=== PATIENT | female | born 1950 | race Caucasian/White ===

== ENCOUNTER 2017-05-09 21:58 | Emergency (ER) | payer MEDICARE, OTHER ==
[~2017-05-09 21:58] MED LIST: CARTIA XT120 MG PO; CENTRUM COMPLE1 EACH PO; DILTIAZEM ER180 MG PO; DITROPAN5 MG PO; JANUMET 50-1,01 EACH PO; LANTUS100 UNIT/1 SC; NEURONTIN300 MG PO; NEURONTIN600 MG PO; PERCOCET 10-321 EACH PO; ZESTRIL20 MG PO; ZETIA10 MG PO; ZOLOFT100 MG PO
[2017-05-10 01:50] LABS: BASOPHIL 0.2 % (0-2); EOSINOPHIL 1.9 % (0-7); HCT 31.2 % (37.0-47.0); HGB 10.6 g/dl (12.5-16.0); LYMPHOCYTE 32.7 % (15-48); MCH 29.9 pg (25.0-31.0); MCV 87.9 fL (78.0-100.0); MONOCYTE 5.4 % (0-12); MPV 10.7 fL (6.0-9.5); NEUTROPHIL 59.8 % (41-80); PLT 136 K/uL (150-400); RBC 3.55 M/uL (4.20-5.40); RDW 15.7 % (11.5-14.0); WBC 5.2 K/uL (4.0-10.5)
[2017-05-10 01:50] LABS: BILIRUBIN NEGATIVE (NEGATIVE); BLOOD NEGATIVE Ery/uL (NEGATIVE); CLARITY CLEAR (CLEAR); COLOR YELLOW (YELLOW); GLUCOSE (U) 3+ mg/dL (NORMAL); KETONE (U) NEGATIVE (NEGATIVE); LEUKOCYTES NEGATIVE Leu/uL (NEGATIVE); NITRITE NEGATIVE (NEGATIVE); PROTEIN NEGATIVE (NEGATIVE); SPECIFIC GRAVITY <=1.005 (1.001-1.030); UROBILINOGEN 0.2 mg/dL (0.2-1.0); pH 5.5 (5.0-9.0)
[2017-05-10 02:07] LABS: POTASSIUM 3.9 mmol/L (3.5-5.1)
== END 2017-05-10 04:25 | disposition home or self-care (01) ==
LOC: FER 21:58
PROVIDERS: Emergency Medicine
DX: E11.621 Type 2 diabetes mellitus with foot ulcer (principal); L97.529 Non-pressure chronic ulcer of other part of left foot with unspecified severity; Z79.4 Long term (current) use of insulin; Z79.899 Other long term (current) drug therapy; Z88.5 Allergy status to narcotic agent; Z88.8 Allergy status to other drugs, medicaments and biological substances; Z87.891 Personal history of nicotine dependence; Z89.422 Acquired absence of other left toe(s)
CPT/HCPCS: 36415; 73630; 80048; 81003; 85025; 86403; 87040; 87070; 87077; 87205

== ENCOUNTER 2017-05-14 18:19 | Day surgery (SDCO) | payer MEDICARE, OTHER ==
[~2017-05-14] VITALS: Ht 175.3 cm; Wt 99.4 kg
[2017-05-14 19:41] LABS: BASOPHIL 0.5 % (0-2); EOSINOPHIL 1.8 % (0-7); HCT 33.3 % (37.0-47.0); HGB 11.6 g/dl (12.5-16.0); LYMPHOCYTE 28.4 % (15-48); MCH 29.8 pg (25.0-31.0); MCHC 34.8 g/dL (32.0-36.0); MCV 85.6 fL (78.0-100.0); MONOCYTE 4.6 % (0-12); MPV 10.3 fL (6.0-9.5); NEUTROPHIL 64.7 % (41-80); PLT 271 K/uL (150-400); RBC 3.89 M/uL (4.20-5.40); RDW 15.2 % (11.5-14.0); WBC 7.4 K/uL (4.0-10.5)
[2017-05-14 19:45] LABS: INR 0.96 (0.9-1.2); PROTHROMBIN TIME 12.4 SECONDS (11.7-14.0); PTT 27.7 SECONDS (23.2-31.4)
[2017-05-14 19:49] LABS: LACTIC ACID 2.7 mmol/L (0.5-2.2)
[2017-05-14 19:52] LABS: ALBUMIN 4.1 g/dL (3.4-4.8); BILIRUBIN - TOTAL 0.3 mg/dL (0.1-1.0); CREATININE 1.9 mg/dL (0.5-1.0); GLOBULIN (CALCULATION) 3.3 g/dL (2.2-4.2); POTASSIUM 4.8 mmol/L (3.5-5.1); TOTAL PROTEIN 7.4 g/dL (6.4-8.3)
[2017-05-14 20:49] LABS: BILIRUBIN NEGATIVE (NEGATIVE); BLOOD NEGATIVE Ery/uL (NEGATIVE); CLARITY CLEAR (CLEAR); COLOR YELLOW (YELLOW); GLUCOSE (U) 1+ mg/dL (NORMAL); KETONE (U) NEGATIVE (NEGATIVE); LEUKOCYTES NEGATIVE Leu/uL (NEGATIVE); NITRITE NEGATIVE (NEGATIVE); PROTEIN NEGATIVE (NEGATIVE); UROBILINOGEN 0.2 mg/dL (0.2-1.0); pH 5.5 (5.0-9.0)
[2017-05-15 02:28] LABS: URINE CREATININE 60.7 mg/dL (29-226)
[2017-05-15 05:20] LABS: BASOPHIL 0.4 % (0-2); HCT 31.4 % (37.0-47.0); HGB 10.7 g/dl (12.5-16.0); LYMPHOCYTE 42.9 % (15-48); MCH 29.2 pg (25.0-31.0); MCHC 34.1 g/dL (32.0-36.0); MCV 85.8 fL (78.0-100.0); MONOCYTE 6.5 % (0-12); MPV 9.8 fL (6.0-9.5); NEUTROPHIL 47.2 % (41-80); PLT 194 K/uL (150-400); RBC 3.66 M/uL (4.20-5.40); RDW 15.3 % (11.5-14.0); WBC 5.4 K/uL (4.0-10.5)
[2017-05-15 05:25] LABS: PROTHROMBIN TIME 12.8 SECONDS (11.7-14.0)
[2017-05-15 05:36] LABS: ALBUMIN 3.6 g/dL (3.4-4.8); BILIRUBIN - TOTAL 0.4 mg/dL (0.1-1.0); CREATININE 1.5 mg/dL (0.5-1.0); GLOBULIN (CALCULATION) 2.9 g/dL (2.2-4.2); MAGNESIUM 1.41 mg/dL (1.40-2.10); PHOSPHORUS 2.8 mg/dL (2.7-4.5); POTASSIUM 4.1 mmol/L (3.5-5.1); TOTAL PROTEIN 6.5 g/dL (6.4-8.3)
[2017-05-16 04:25] LABS: CREATININE 1.1 mg/dL (0.5-1.0); POTASSIUM 4.2 mmol/L (3.5-5.1)
[2017-05-16] MEDS ORDERED: CLARITIN10 MG PO (10:43)
[2017-05-16] MEDS ORDERED: PRILOSEC20 MG PO (10:44)
[2017-05-16] MEDS ORDERED: LIPITOR80 MG PO (10:44)
[2017-05-16] MEDS ORDERED: ASPIRIN325 MG PO (10:44)
[2017-05-16] MEDS ORDERED: COZAAR50 MG PO (10:44)
[2017-05-16] MEDS ORDERED: LACTINEX1 EACH PO (10:45)
[2017-05-16] MEDS ORDERED: FEOSOL325 MG PO (10:45)
[2017-05-16] MEDS ORDERED: AUGMENTIN 875-1 EACH PO (10:45)
[2017-05-16] MEDS ORDERED: HUMALOG100 UNIT/1 SC (10:45)
[2017-05-16] MEDS ORDERED: AMITRIPTYLINE150 MG PO (16:42)
[2017-05-16] MEDS ORDERED: FLEXERIL10 MG PO (16:43)
[2017-05-16] MEDS ORDERED: TYLENOL #31 EACH PO (16:44)
== END 2017-05-16 11:35 | disposition home or self-care (01) ==
LOC: FER 18:19 → FMS 21:00
PROVIDERS: Emergency Medicine; Internal Medicine; ADMIT Internal Medicine
DX: I12.9 Hypertensive chronic kidney disease with stage 1 through stage 4 chronic kidney disease, or unspecified chronic kidney disease (principal); E11.22 Type 2 diabetes mellitus with diabetic chronic kidney disease; N18.9 Chronic kidney disease, unspecified; E11.40 Type 2 diabetes mellitus with diabetic neuropathy, unspecified; E86.0 Dehydration; E87.1 Hypo-osmolality and hyponatremia; L97.429 Non-pressure chronic ulcer of left heel and midfoot with unspecified severity; E66.9 Obesity, unspecified; F32.9 Major depressive disorder, single episode, unspecified; F41.9 Anxiety disorder, unspecified; E78.5 Hyperlipidemia, unspecified; K21.9 Gastro-esophageal reflux disease without esophagitis; M19.90 Unspecified osteoarthritis, unspecified site; Z88.5 Allergy status to narcotic agent; Z88.8 Allergy status to other drugs, medicaments and biological substances; Z87.891 Personal history of nicotine dependence; Z82.3 Family history of stroke; Z80.1 Family history of malignant neoplasm of trachea, bronchus and lung; Z90.49 Acquired absence of other specified parts of digestive tract; Z90.710 Acquired absence of both cervix and uterus; Z89.412 Acquired absence of left great toe; Z79.82 Long term (current) use of aspirin; Z79.4 Long term (current) use of insulin; Z79.2 Long term (current) use of antibiotics; Z79.899 Other long term (current) drug therapy; Z98.890 Other specified postprocedural states
CPT/HCPCS: 36415; 71010; 73630; 76770; 80048; 80053; 81003; 82570; 82962; 83605; 83735; 84100; 84300; 85025; 85610; 85730; 87040; 87088; 89190; 93005; 97116; 97161; G0378; J1815; J2543

== ENCOUNTER 2020-12-17 20:17 | Inpatient (IN) | payer MEDICARE, OTHER ==
[~2020-12-17 20:17] MED LIST changes: +AMITRIPTYLINE150 MG PO; +ASPIRIN325 MG PO; +ATARAX25 MG PO; +AUGMENTIN 875-1 EACH PO; +BACLOFEN 10MG T10 MG PO; +BENICAR *OUT OF20 MG PO; -CARTIA XT120 MG PO; +CARTIA XT180 MG PO; +CATAPRES0.1 MG PO; +CLARITIN10 MG PO; +COZAAR100 MG PO; +COZAAR50 MG PO; +FEOSOL325 MG PO; +FLEXERIL10 MG PO; +FLEXERIL5 MG PO; +HUMALOG 75100 UNIT/M SC; +K-TAB ER20 MEQ PO; +KEFLEX250 MG PO; +LACTINEX1 EACH PO; +LANTUS **100 UNITS/ SC; +LASIX40 MG PO; +LASIX80 MG PO; +LIPITOR 10MG TA10 MG PO; +LIPITOR80 MG PO; -NEURONTIN300 MG PO; +NEURONTIN400 MG PO; +NORVASC5 MG PO; +NOVOLOG VI100 UNIT/1 SC; +PHENERGAN12.5 M1 PO; +POTASSIUM; +PRILOSEC20 MG PO; +TOPROL XL 50 MG50 MG PO; +TOUJEO MAX300 UNIT/1 SC; +TRIAMCINOLONE 080 GM TOP; +TYLENOL #31 EACH PO; +TYLENOL WITH C1 EAC1 PO
[2020-12-17 20:47] LABS: BASOPHIL 0.2 % (0-2); EOSINOPHIL 0.3 % (0-7); HCT 30.1 % (37.0-47.0); HGB 9.7 g/dl (12.5-16.0); LYMPHOCYTE 8.9 % (15-48); MCH 26.1 pg (25.0-31.0); MCHC 32.2 g/dL (32.0-36.0); MCV 81.1 fL (78.0-100.0); MONOCYTE 3.6 % (0-12); MPV 10.2 fL (6.0-9.5); NEUTROPHIL 86.4 % (41-80); NRBC 0; PLT 400 K/uL (150-400); RBC 3.71 M/uL (4.20-5.40); WBC 14.3 K/uL (4.0-10.5)
[2020-12-17 21:13] LABS: PRO-BNP 2386 pg/mL (<125)
[2020-12-17 21:26] LABS: CREATININE 1.54 mg/dL (0.51-0.95); POTASSIUM 3.9 mmol/L (3.5-5.1)
[2020-12-17 21:27] LABS: ALBUMIN 2.4 g/dL (3.4-5.0); BILIRUBIN - TOTAL 0.6 mg/dL (0.2-1.0); GLOBULIN (CALCULATION) 5.8 g/dL; TOTAL PROTEIN 8.2 g/dL (6.4-8.2)
[2020-12-17 21:36] LABS: CORONAVIRUS 2019 SARS-COV-2 POSITIVE (NEGATIVE); INFLUENZA A NAA NEGATIVE (NEGATIVE)
[2020-12-17 23:50] LABS: BILIRUBIN NEGATIVE (NEGATIVE); BLOOD 2+ Ery/uL (NEGATIVE); CLARITY CLEAR (CLEAR); COLOR YELLOW (YELLOW); GLUCOSE (U) 3+ mg/dL (NORMAL); LEUKOCYTES TRACE Leu/uL (NEGATIVE); NITRITE POSITIVE (NEGATIVE); PROTEIN 2+ mg/dL (NEGATIVE); SPECIFIC GRAVITY <=1.005 (1.001-1.030); UROBILINOGEN 0.2 mg/dL (0.2-1.0)
[2020-12-18 00:01] LABS: BACTERIA 1+; URINARY WBC 20-50
[2020-12-18 00:02] LABS: YEAST PRESENT
--- NOTE | 2020-12-18 02:58 | NUR ---
PARKING MANAGER ORDERED 200MG REMDESIVIR VEKLURY IN 250ML NORMAL SALINE TO BE GIVEN AT 125 ML/HR, PER EMAR INSTRUCTIONS STATED REMOVE DRUG AMOUNT AND TOTAL VOLUME AT 210ML WITH AND INFUSION RATE OF 125 ML/HR WITH INFUSION TIME BEING 1HR AND 41 MINS, INSTRUCTIONS UNCLEAR, RN CALLED PHARMACY FOR 15 MINS WITH NO ANSWER, PHARMACY FINALLY ANSWERED WITH DIRECTIONS OF REMOVE 40ML NORMAL SALINE FROM 250 ML BAG, RECONSTITUTE REMEDSIVIR VIAL WITH STERILE WATER 20 ML/100MG VIAL RESULTING IN 250 ML TOTAL IV FLUIDS TO BE GIVEN AT 125ML/HR. PHARMACY SUGGESTED LOOKING AT [facility] FOR MIXING DIRECTIONS, NO ACCESS TO [facility]. INSTRUCTIONS REPEATED BACK TO PHARMACY FOR CLARITY AND PHARMACY AGREED.
[2020-12-18 03:44] LABS: BASOPHIL 0.3 % (0-2); EOSINOPHIL 1.4 % (0-7); HCT 25.9 % (37.0-47.0); HGB 8.4 g/dl (12.5-16.0); LYMPHOCYTE 12.8 % (15-48); MCH 26.4 pg (25.0-31.0); MCHC 32.4 g/dL (32.0-36.0); MCV 81.4 fL (78.0-100.0); MONOCYTE 4.5 % (0-12); MPV 9.1 fL (6.0-9.5); NEUTROPHIL 80.2 % (41-80); NRBC 0; PLT 298 K/uL (150-400); RBC 3.18 M/uL (4.20-5.40); RDW 15.9 % (11.5-14.0); WBC 11.9 K/uL (4.0-10.5)
[2020-12-18 04:00] LABS: BUN/CREAT RATIO (CALC) 21.6 RATIO; CREATININE 1.34 mg/dL (0.51-0.95); POTASSIUM 3.4 mmol/L (3.5-5.1)
[2020-12-18 06:00] LABS: IRON % SATURATION 31.8 %SAT (20-50)
[2020-12-18 06:34] LABS: FOLIC ACID (SERUM) 13.7 ng/mL (8.6-58.9)
--- NOTE | 2020-12-18 12:56 | NUR ---
RECHECK GLUCOSE AFTER INTIAL CHECK AND WAS 454. NOTIFIED BUT NO NEW ORDERS GIVEN.
[2020-12-19 04:56] LABS: BASOPHIL 0.2 % (0-2); EOSINOPHIL 0.4 % (0-7); HCT 24.6 % (37.0-47.0); LYMPHOCYTE 13.5 % (15-48); MCH 26.6 pg (25.0-31.0); MCHC 32.5 g/dL (32.0-36.0); MCV 81.7 fL (78.0-100.0); MONOCYTE 4.8 % (0-12); MPV 9.3 fL (6.0-9.5); NEUTROPHIL 80.1 % (41-80); NRBC 0; PLT 311 K/uL (150-400); RBC 3.01 M/uL (4.20-5.40); RDW 15.9 % (11.5-14.0); WBC 9.7 K/uL (4.0-10.5)
[2020-12-19 05:11] LABS: BUN/CREAT RATIO (CALC) 18.8 RATIO; CREATININE 1.17 mg/dL (0.51-0.95); POTASSIUM 3.1 mmol/L (3.5-5.1)
--- NOTE | 2020-12-19 16:22 | NUR ---
PT. DECLINED HH SERVICES. ADVISED DR. ARECHIGA OF PATIENT NOT WANTING HH. HE STATED THAT WOULD BE FINE. HE IS ORDERING HOME O2. PLEASE REMIND PT. TO CALL [facility] ONCE SHE GETS HOME SO THAT HER CONCENTRATOR MAY BE DELIVERED. CALL [phone] [facility] 1.
[2020-12-20 04:22] LABS: BASOPHIL 0.4 % (0-2); EOSINOPHIL 0.4 % (0-7); HCT 28.5 % (37.0-47.0); HGB 8.9 g/dl (12.5-16.0); LYMPHOCYTE 19.9 % (15-48); MCH 25.9 pg (25.0-31.0); MCHC 31.2 g/dL (32.0-36.0); MCV 82.8 fL (78.0-100.0); MONOCYTE 5.4 % (0-12); MPV 9.4 fL (6.0-9.5); NEUTROPHIL 70.7 % (41-80); NRBC 0; PLT 302 K/uL (150-400); RBC 3.44 M/uL (4.20-5.40); RDW 16.3 % (11.5-14.0); WBC 7.4 K/uL (4.0-10.5)
[2020-12-20 04:50] LABS: ALBUMIN 1.9 g/dL (3.4-5.0); BILIRUBIN - TOTAL 0.2 mg/dL (0.2-1.0); BUN/CREAT RATIO (CALC) 15.7 RATIO; CREATININE 1.21 mg/dL (0.51-0.95); GLOBULIN (CALCULATION) 4.6 g/dL; POTASSIUM 3.5 mmol/L (3.5-5.1); TOTAL PROTEIN 6.5 g/dL (6.4-8.2)
[2020-12-22 05:44] LABS: BASOPHIL 0.4 % (0-2); EOSINOPHIL 0 % (0-7); HCT 25.3 % (37.0-47.0); LYMPHOCYTE 20.8 % (15-48); MCH 26.4 pg (25.0-31.0); MCHC 31.6 g/dL (32.0-36.0); MCV 83.5 fL (78.0-100.0); MONOCYTE 4.3 % (0-12); MPV 9.7 fL (6.0-9.5); NEUTROPHIL 68.3 % (41-80); NRBC 0.3; PLT 282 K/uL (150-400); RBC 3.03 M/uL (4.20-5.40); RDW 16.6 % (11.5-14.0); WBC 7.3 K/uL (4.0-10.5)
[2020-12-22 06:25] LABS: ALBUMIN 1.9 g/dL (3.4-5.0); BILIRUBIN - TOTAL 0.2 mg/dL (0.2-1.0); BUN/CREAT RATIO (CALC) 18.2 RATIO; C-REACTIVE PROTEIN 1.9 mg/dL (<=0.90); CREATININE 1.32 mg/dL (0.51-0.95); GLOBULIN (CALCULATION) 4.1 g/dL; POTASSIUM 3.2 mmol/L (3.5-5.1)
[2020-12-22] MEDS ORDERED: DECADRON6 MG PO (12:05)
--- NOTE | 2020-12-24 12:57 | NUR ---
WHEN ALVERTO LAMB RN WAS DOING "CALL BACKS" PT. INFORMED HER THAT SHE WOULD LIKE TO HAVE HH. SHE DID NOT HAVE A PREFERENCE FOR HH. TC TO [facility]. [facility] ADVISED THAT SHE WOULD ACCEPT THE PATIENT. FAXED INFORMATION TO [facility].
== END 2020-12-22 16:20 | disposition home health service (06) | DRG 177 ==
LOC: FER 20:17 → FTCU 23:18 → FMS 12-20 11:05
PROVIDERS: Emergency Medicine Emergency Medical Services; Nurse Practitioner; ADMIT Internal Medicine
PROC: 8E0ZXY6 Isolation (ICD-10-PCS; principal; 2020-12-17)
PROC: XW033E5 Introduction of Remdesivir Anti-infective into Peripheral Vein, Percutaneous Approach, New Technology Group 5 (ICD-10-PCS; 2020-12-17)
PROC: 3E0333Z Introduction of Anti-inflammatory into Peripheral Vein, Percutaneous Approach (ICD-10-PCS; 2020-12-17)
DX: U07.1 COVID-19 (principal); J12.82 Pneumonia due to coronavirus disease 2019; J96.01 Acute respiratory failure with hypoxia; N39.0 Urinary tract infection, site not specified; E87.1 Hypo-osmolality and hyponatremia; N17.9 Acute kidney failure, unspecified; L97.528 Non-pressure chronic ulcer of other part of left foot with other specified severity; L97.518 Non-pressure chronic ulcer of other part of right foot with other specified severity; R53.1 Weakness; E11.40 Type 2 diabetes mellitus with diabetic neuropathy, unspecified; E78.5 Hyperlipidemia, unspecified; F41.1 Generalized anxiety disorder; K21.9 Gastro-esophageal reflux disease without esophagitis; G47.30 Sleep apnea, unspecified; E11.65 Type 2 diabetes mellitus with hyperglycemia; D64.9 Anemia, unspecified; N18.2 Chronic kidney disease, stage 2 (mild); E11.22 Type 2 diabetes mellitus with diabetic chronic kidney disease; I12.9 Hypertensive chronic kidney disease with stage 1 through stage 4 chronic kidney disease, or unspecified chronic kidney disease; Z91.19 Patient's noncompliance with other medical treatment and regimen; Z89.412 Acquired absence of left great toe; Z87.891 Personal history of nicotine dependence; Z88.5 Allergy status to narcotic agent; Z79.4 Long term (current) use of insulin; Z79.899 Other long term (current) drug therapy; E87.6 Hypokalemia; E11.621 Type 2 diabetes mellitus with foot ulcer
CPT/HCPCS: 36415; 36600; 71045; 71250; 80048; 80053; 81001; 82009; 82607; 82728; 82746; 82803; 82962; 83036; 83540; 83550; 83605; 83615; 83735; 83880; 84145; 84484; 85025; 85379; 86140; 87040; 87088; 93005; 94010; 94640; C9399; J0360; J0456; J0696; J1100; J1650; J1956; J2543; J3370; J3475; J3490; J7030; J7050; J8540; U0002

== ENCOUNTER 2021-02-05 14:59 | Emergency (ER) | payer MEDICARE, OTHER ==
[~2021-02-05 14:59] MED LIST changes: +DECADRON6 MG PO
[2021-02-05] MEDS ORDERED: PERCOCET 7.5/321 TAB PO (20:10)
[2021-02-05] MEDS ORDERED: LIDODERM 5%1 EACH SC (20:10)
[2021-02-05] MEDS ORDERED: DOXYCYCLINE MO100 MG PO (20:10)
== END 2021-02-06 00:01 | disposition home or self-care (01) ==
LOC: FER 14:59
DX: S22.41XA Multiple fractures of ribs, right side, initial encounter for closed fracture (principal); M25.551 Pain in right hip; I10 Essential (primary) hypertension; E11.9 Type 2 diabetes mellitus without complications; Z88.5 Allergy status to narcotic agent; Z88.8 Allergy status to other drugs, medicaments and biological substances; Y92.009 Unspecified place in unspecified non-institutional (private) residence as the place of occurrence of the external cause; W10.9XXA Fall (on) (from) unspecified stairs and steps, initial encounter
CPT/HCPCS: 71045; 71250; 72125; 72128; 72131; 72192; 73030

== ENCOUNTER 2021-02-13 19:24 | Inpatient (IN) | payer MEDICARE, OTHER ==
[~2021-02-13] VITALS: Ht 175.3 cm; Wt 92.6 kg
[~2021-02-13 19:24] MED LIST changes: +DOXYCYCLINE MO100 MG PO; +LIDODERM 5%1 EACH SC; +PERCOCET 7.5/321 TAB PO
[2021-02-13 19:52] LABS: BASOPHIL 0.2 % (0-2); EOSINOPHIL 0 % (0-7); HCT 37.3 % (37.0-47.0); HGB 11.9 g/dl (12.5-16.0); MCH 27.4 pg (25.0-31.0); MCHC 31.9 g/dL (32.0-36.0); MCV 85.7 fL (78.0-100.0); MONOCYTE 3.7 % (0-12); MPV 9.6 fL (6.0-9.5); NEUTROPHIL 90.4 % (41-80); NRBC 0; PLT 409 K/uL (150-400); RBC 4.35 M/uL (4.20-5.40); RDW 16.4 % (11.5-14.0)
[2021-02-13 19:56] LABS: INR 1.32 (0.9-1.2); PROTHROMBIN TIME 15.6 SECONDS (11.4-13.6); PTT 26.7 SECONDS (22.2-34.7)
[2021-02-13 20:01] LABS: WBC 27.9 K/uL (4.0-10.5)
[2021-02-13 20:17] LABS: LACTIC ACID 2.5 mmol/L (0.4-1.9)
[2021-02-13 20:20] LABS: BILIRUBIN NEGATIVE (NEGATIVE); BLOOD 3+ Ery/uL (NEGATIVE); CLARITY CLOUDY (CLEAR); COLOR RED (YELLOW); ECSTASY (MDMA) NEGATIVE (NEGATIVE); GLUCOSE (U) 3+ mg/dL (NORMAL); LEUKOCYTES 2+ Leu/uL (NEGATIVE); MARIJUANA (THC) NEGATIVE (NEGATIVE); METHADONE NEGATIVE (NEGATIVE); NITRITE NEGATIVE (NEGATIVE); OPIATES NEGATIVE (NEGATIVE); PROTEIN 3+ mg/dL (NEGATIVE); SPECIFIC GRAVITY >=1.030 (1.001-1.030); UROBILINOGEN 0.2 mg/dL (0.2-1.0); pH 5.5 (5.0-9.0)
[2021-02-13 20:20] LABS: BILIRUBIN - TOTAL 0.6 mg/dL (0.2-1.0); CREATININE 2.76 mg/dL (0.51-0.95); GLOBULIN (CALCULATION) 4.9 g/dL; POTASSIUM 4.6 mmol/L (3.5-5.1); TOTAL PROTEIN 7.9 g/dL (6.4-8.2)
[2021-02-13 20:21] LABS: AMPHETAMINES NEGATIVE (NEGATIVE); BARBITURATES NEGATIVE (NEGATIVE); OXYCODONE NEGATIVE (NEGATIVE)
[2021-02-13 20:27] LABS: BACTERIA 2+; URINARY RBC TNTC; URINARY WBC TNTC
[2021-02-13 20:28] LABS: SQUAMOUS EPITHELIAL CELLS RARE
[2021-02-14 05:07] LABS: BASOPHIL 0.2 % (0-2); EOSINOPHIL 0 % (0-7); HGB 10.7 g/dl (12.5-16.0); LYMPHOCYTE 6.3 % (15-48); MCH 27.7 pg (25.0-31.0); MCHC 32.4 g/dL (32.0-36.0); MCV 85.5 fL (78.0-100.0); MONOCYTE 3.1 % (0-12); MPV 9.4 fL (6.0-9.5); NEUTROPHIL 89.7 % (41-80); NRBC 0; PLT 277 K/uL (150-400); RBC 3.86 M/uL (4.20-5.40); RDW 16.4 % (11.5-14.0)
[2021-02-14 05:10] LABS: WBC 25.2 K/uL (4.0-10.5)
[2021-02-14 05:26] LABS: INR 1.46 (0.9-1.2); PROTHROMBIN TIME 16.8 SECONDS (11.4-13.6); PTT 30.9 SECONDS (22.2-34.7)
[2021-02-14 05:46] LABS: CREATININE 2.6 mg/dL (0.51-0.95); MAGNESIUM 2.3 mg/dL (1.8-2.4); POTASSIUM 4.2 mmol/L (3.5-5.1)
--- NOTE | 2021-02-14 13:04 | NUR ---
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
--- NOTE | 2021-02-14 14:04 | NUR ---
OKAYED TO GO DOWN FOR MRI WITHOUT MONITORING
== END 2021-02-14 16:10 | disposition other institution (70) | DRG 871 ==
LOC: FER 19:24 → FICU 22:30
PROVIDERS: Emergency Medicine; Nurse Practitioner; ADMIT Hospitalist
PROC: 0D9670Z Drainage of Stomach with Drainage Device, Via Natural or Artificial Opening (ICD-10-PCS; principal; 2021-02-14)
DX: A41.9 Sepsis, unspecified organism (principal); I21.A1 Myocardial infarction type 2; G93.41 Metabolic encephalopathy; I63.512 Cerebral infarction due to unspecified occlusion or stenosis of left middle cerebral artery; S22.41XA Multiple fractures of ribs, right side, initial encounter for closed fracture; N39.0 Urinary tract infection, site not specified; M62.82 Rhabdomyolysis; E87.2 Acidosis; I69.351 Hemiplegia and hemiparesis following cerebral infarction affecting right dominant side; N17.9 Acute kidney failure, unspecified; R06.03 Acute respiratory distress; K21.9 Gastro-esophageal reflux disease without esophagitis; E11.40 Type 2 diabetes mellitus with diabetic neuropathy, unspecified; F41.1 Generalized anxiety disorder; Z20.822 Contact with and (suspected) exposure to COVID-19; R65.20 Severe sepsis without septic shock; D72.829 Elevated white blood cell count, unspecified; E11.65 Type 2 diabetes mellitus with hyperglycemia; E11.22 Type 2 diabetes mellitus with diabetic chronic kidney disease; F32.9 Major depressive disorder, single episode, unspecified; G47.33 Obstructive sleep apnea (adult) (pediatric); I12.9 Hypertensive chronic kidney disease with stage 1 through stage 4 chronic kidney disease, or unspecified chronic kidney disease; M19.90 Unspecified osteoarthritis, unspecified site; N18.9 Chronic kidney disease, unspecified; E86.0 Dehydration; W17.89XA Other fall from one level to another, initial encounter; Y92.008 Other place in unspecified non-institutional (private) residence as the place of occurrence of the external cause; Z87.442 Personal history of urinary calculi; Z79.4 Long term (current) use of insulin; Z91.19 Patient's noncompliance with other medical treatment and regimen; Z90.710 Acquired absence of both cervix and uterus; Z89.412 Acquired absence of left great toe; Z79.899 Other long term (current) drug therapy; Z88.5 Allergy status to narcotic agent; Z88.8 Allergy status to other drugs, medicaments and biological substances; Z82.49 Family history of ischemic heart disease and other diseases of the circulatory system; Z82.3 Family history of stroke; Z80.1 Family history of malignant neoplasm of trachea, bronchus and lung; Z87.891 Personal history of nicotine dependence; I69.392 Facial weakness following cerebral infarction
CPT/HCPCS: 36415; 36600; 70450; 70551; 71045; 71250; 74018; 80048; 80053; 80305; 81001; 82009; 82140; 82550; 82803; 82962; 83036; 83605; 83735; 83874; 83880; 84145; 84443; 84484; 85025; 85610; 85730; 87040; 87076; 87088; 87186; 93005; 96374; 96375; C9113; J0360; J1644; J1650; J2543; J3370; J7030; J7050; U0002